=== PATIENT | male | born 1940 | race Caucasian/White ===

== ENCOUNTER 2020-06-02 18:04 | Inpatient (IN) | payer MEDICARE, BC ==
[2020-06-02] MEDS ORDERED: ACETAMINOPHEN325 MG PO (19:07)
[2020-06-02] MEDS ORDERED: MONODOX100 MG PO (19:08)
[2020-06-02] MEDS ORDERED: FOLIC ACID1 MG PO (19:08)
[2020-06-02] MEDS ORDERED: LASIX20 MG PO (19:09)
[2020-06-02] MEDS ORDERED: HEPARIN SOD5000 U/ML IV (19:12)
[2020-06-02] MEDS ORDERED: HUMALOG 30100 UNITS/ SC (19:16)
[2020-06-02] MEDS ORDERED: MAG-OX 400 MG400 MG PO (19:17)
[2020-06-02] MEDS ORDERED: PROTONIX40 MG PO (19:19)
[2020-06-02] MEDS ORDERED: ZOFRAN4 MG PO (19:19)
[2020-06-02 20:53] VITALS: BP 125/81
[2020-06-02 20:57] LABS: BASOPHILS 0.3 % (0-2); EOSINOPHILS 1.5 % (0-7); HEMATOCRIT 44.8 % (42.0-54.0); HEMOGLOBIN 15.4 g/dL (13.5-17.5); IMMATURE GRANULOCYTES 0.4 % (0-5); LYMPHOCYTES 17.7 % (15-50); MCHC 34.4 g/dL (31.0-37.0); MCV 93.1 fL (80.0-100.0); MEAN PLATELET VOLUME 10.8 fL (7.4-10.4); MONOCYTES 9.8 % (2-11); NEUTROPHILS 70.3 % (40-80); PLATELET COUNT 151 10x3/uL (130-400); RBC 4.81 10x6/uL (4.20-6.10); RDW 12.8 % (11.5-14.5); WBC 7.6 10x3/uL (4.8-10.8)
[2020-06-02 21:00] LABS: BILIRUBIN NEGATIVE (NEGATIVE); GLUCOSE 1000 mg/dL (NEGATIVE); KETONE NEGATIVE (NEGATIVE); NITRITE NEGATIVE (NEGATIVE); SPECIFIC GRAVITY 1.015 (1.005-1.020); UROBILINOGEN NORMAL (NORMAL)
[2020-06-02 21:57] LABS: ALBUMIN 3.3 g/dL (3.4-5.0); ANION GAP 12.6 mmol/L (8-16); BILIRUBIN - TOTAL 0.54 mg/dL (0.2-1.3); CALCIUM 8.9 mg/dL (8.5-10.1); CARBON DIOXIDE 25.7 mmol/L (21.0-32.0); CHOL - HDL RATIO 3.8 ratio (2.3-4.9); CREATININE - SERUM 1.9 mg/dL (0.6-1.3); LDL-HDL RATIO 2.5 ratio (1.5-3.5); POTASSIUM - SERUM 4.3 mmol/L (3.5-5.1); PROTEIN - SERUM 7.2 g/dL (6.4-8.2); THYROID STIMULATING HORMONE 1.7 uIU/mL (0.36-3.74)
--- NOTE | 2020-06-02 22:34 | NUR ---
PATIENT GIVEN ATIVAN 0.5 MG IM AND HALDOL 2 MG IM FOR ANXIETY AND COMBATIVE WITH STAff.
--- NOTE | 2020-06-02 22:45 | NUR ---
RECEIVED IN DAYROOM. RESTLESS. VERY CONFUSED. IN HALLWAY AT THIS TIME. HIGH ANXIETY. DELUSIONAL. AGGRESSIVE WITH STAFF. PRN ATIVAN 0.5 MG IM GIVEN FOR ANXIETY AND PRN HALDOL 2 MG IM GIVEN FOR PSYCHOTIC UNSAFE BEHAVIOR. TWO ON ONE CARE PROVIDED AT THIS TIME FOR SAFETY. CONITNUE PLAN OF CARE.
[2020-06-03 00:41] VITALS: BP 125/61
--- NOTE | 2020-06-03 10:56 | NUR ---
The patient was fighting with staff while they toileted him and he fell on his knee then he turned his body and hurt his chest. He was in tears when he came back into the day room. Dr. Mendez assessed and orderd some tests, see orders. Called an let his spouse know, let her know that we will call when we get the results.
--- NOTE | 2020-06-03 13:55 | NUR ---
The patient's xrays are wnl. The patient continues to be confused and he is sliding out of his chair. He is telling staff he needs to get up and walk out. The patient's spouse called and she told Karla Borrero RN that she did not want her to be here, he is supposed to be there two days not to be studied. She then says she would like to come and get him and take him home. Karla Borrero RN explained to her the visitation days and hours again and she also explained that the Tunnel Heading Inspector Tejinder Medrano will be able to further assist her with information about his discharge. Provide prescribed meds. The patient refused his am meds. Continue POC.
--- NOTE | 2020-06-03 15:10 | NUR ---
The patient's daughter called and said that her mother is coming to pick the patient up and she asks that we have her dad ready for her. She asked if she will need any paperwork to do so. Let her know that we will contact the physician. Called Stephanie Jones APN and she states "He can d/c AMA." Will ready the patient to let him go.
--- NOTE | 2020-06-03 17:20 | NUR ---
The patient's spouse is here to pick the patient up and take him AMA. Joy Sams RN explained to her what AMA meant and this nurse also sat with her and explained to her. The spouse is upset because she says her children want him out of here because staff let the daughter know that the patient had ativan and haldol and she is concerned about the medications. At this time she is leaving her on half-way to allow the patient to get an evaluation and then she will determine her next move.
[2020-06-03 20:03] VITALS: BP 144/89
--- NOTE | 2020-06-03 22:30 | NUR ---
B.) PT IS ALERT AND ORIENTED TO SELF ONLY. HE HAS IS AGGITATED WITH CARE. HE IS RESTLESS AND IS OBESERVED ATTEMPTING TO GET OUT OF CHAIR. NEURO CHECKS FROM THE FALL BEING CONTINUE. NO CHANGE IN LOC SINCE FALL. I.) PROVIDED PM MEDICATIONS PRESCRIBED. REDIRECT OFTEN. R.) COMPLIANT WITH ALL MEDICATIONS. DIFFICULT TO REDIRECT. P.) WILL CONTINUE TO MONITOR.
--- NOTE | 2020-06-03 23:37 | NUR ---
PT IS RESTLESS AND RELATES THAT HE IS ANXIOUS. UNABLE TO REDIRECT. ADMINISITERED PRN ATIVAN IM PER ORDERS. WILL CONTINUE TO MONITOR
--- NOTE | 2020-06-04 00:10 | NUR ---
PT IS STILL RESTLESS HE IS RESTING CALMLY IN BED. DIFFICULT TO REDIRECT. WILL CONTINUE TO MONITOR.
--- NOTE | 2020-06-04 03:00 | NUR ---
PATIENT GIVEN HALDOL 2 MG IM FOR ANXIETY AND COBATIVENESS WITH STAFF AT 03:00.
[2020-06-04 07:15] LABS: RAPID PLASMA REAGIN Non Reactive (Non Reactive)
[2020-06-04 09:36] VITALS: BP 127/49
[2020-06-04 13:44] VITALS: Wt 90.3 kg
--- NOTE | 2020-06-04 14:00 | NUR ---
B) PATIENT IS ALERT AND ORIENTED TO SELF ONLY. RESTING QUIETLY WITH EYES CLOSED IN DAYROOM SITTING IN RECLINER. NO BEHAVIORS NOTED AT THIS TIME. I) PRESCRIBED MEDICATIONS ADMINISTERED. REDIRECT AND REORIENT NEEDED. R) COMPLIANT WITH ALL MEDICATIONS. EASY TO REDIRECT. P) CONTINUE PLAN OF CARE.
--- NOTE | 2020-06-04 15:30 | NUR ---
STEVIE SPOKE WITH PT'S PATRICK FOR ONE AND HALF HOURS DUE TO HER HAVING CONCERNS ABOUT PT BEING ON THE UNIT. PT'S STATED SHE UNDERSTOOD WHILE PT WAS ON THE UNIT BUT IS GETTING PRESSURED BY HER KIDS TO COME GET HIM OUT. SHE STATED SHE COULDN'T TAKE CARE OF HIM LIKE HE IS. SW EXPLAINED EFFECTS OF MEDICATIONS AND ANESTHESIA ON DEMENTIA PATIENTS. FAUZIA FINN EXPLAINED DOSES OF PRN MEDS AND PT'S AGGRESSIVE BEHAVIORS. SW DISCUSSED DIFFERENT LEVELS OF CARE AND CARE GIVING IN THE HOME ENVIRONMENT. SW EXPLAINED IF PT IS ON THE RIGHT MEDICATION THE PRN MEDICATIONS WILL BE NOT GIVEN BECAUSE PT WOULD BE MORE STABLE. SW EXPLAINED GROUPS AND ACTIVITIES BEING DONE ON PT AND STAFF ENCOURAGING MOVEMENT AND WALKING. SW ALSO EXPLAINED PT EVALUATION HASN'T BEEN DONE DUE TO PT'S AGGRESSION WITH CARE AND REDIRECTION AT TIMES. PT NEEDS TO BE MORE STABLE TO GET MORE ASSESSSMENTS. PT'S STATED SHE WOULD ASK HER DTR TO COME IN THE NEXT WEEK. SHE FEELS THE PT MIGHT BE MORE STABLE AND THEN COULD COME HOME EASIER THAN RIGHT NOW. STEVIE GAVE HER SW'S CARD WITH PW AND UNIT NUMBER ON IT. SHE ASKED SW IF HER CHILDREN COULD CALL AND SW STATED YES. SW THEN STATED IF VOICEMAIL IS LEFT AND IF THEY DON'T RECIEVE CALL BACK WITH IN A FEW HOURS CALL THE UNIT AT [phone]. PT'S VERBALIZED UNDERSTANDING OF DISCUSSION.
[2020-06-04 20:19] VITALS: BP 157/88
--- NOTE | 2020-06-04 23:13 | NUR ---
PT IS ATTENDING TO VISUAL HALLUCINATIONS. HE IS AGGITATED WITH CARE. PT IS HAVING CRYING SPELLS FROM VISUAL HALLUCINATIONS. DIFFICULT TO REDIRECT. ADMINISITERED IM HALDOL 2 MG. WILL CONTINUE TO MONITOR.
--- NOTE | 2020-06-04 23:40 | NUR ---
PT IS RESTING CALMLY IN A GERICHAIR IN THE HALLWAY FOR OBSERVATION. NO SIGNS OF DISTRESS NOTED. WILL CONTINUE TO MONITOR.
--- NOTE | 2020-06-04 23:50 | NUR ---
B.) PT IS ALERT AND ORIENTED TO SELF ONLY. HE HAS POOR INSIGHT INTO HIS SITUATION. HE IS RECEIVED IN THE DAYROOM IN A GERICHARIR. HE IS COOPERATIVE WITH STAFF. HIS SPEECH REMAINS GARBLED. I.) PROVIDED PM MEDICATIONS PRESCRIBED. REDIRECT OFTEN. R.) COMPLIANT WITH ALL MEDICATIONS. DIFFICULT TO REDIRECT. P.) WILL CONTINUE TO MONITOR.
--- NOTE | 2020-06-05 04:30 | NUR ---
PATIENT WAS GIVEN HALDOL AND ATIVAN AROUND 2 AM FOR RESTLESSNESS, HITTING AND SCRATCHING STAFF, HE WAS SAYING THINGS THAT DID NOT MAKE ANY SENSE, HE URINATED IN THE FLOOR. INTERVENTION WAS EFFECTIVE
[2020-06-05 07:31] LABS: ANION GAP 12.2 mmol/L (8-16); CALCIUM 9.3 mg/dL (8.5-10.1); CARBON DIOXIDE 27.6 mmol/L (21.0-32.0); CREATININE - SERUM 1.4 mg/dL (0.6-1.3); POTASSIUM - SERUM 3.8 mmol/L (3.5-5.1)
--- NOTE | 2020-06-05 11:38 | NUR ---
The patient is sleepy this am, he has not shown aggression, but he continues to sleep d/t the prn he had last night. He is too sleepy this am to take his medications. He has poor insight into his situation. He knows his name, but he does not know his name or the place. Redirect as needed to appropriate milieu. Continue POC.
[2020-06-05 14:10] VITALS: BP 140/79
--- NOTE | 2020-06-05 15:43 | NUR ---
PT DAUGHTER AND SPOUSE HERE AT THIS TIME. PASSCODE NOT GIVEN AT THIS TIME. STAFF MEMBER NOTIFIED DEVELOPMENT ENG OF FAMILY STATING THEY HAVE AN APPT WITH [facility] AND SHE HAD SPOKEN TO KARIE ABOUT HER HAVING AN APPT. DEVELOPMENT ENG MET WITH FAMILY AT THIS TIME. NURSE WROTE PASSCODE ON PAPER FOR THE DUE TO HER NOT HAVING THE CODEWORD. IS POA. Darshana GALAN DEVELOPMENT ENG EDUCATED PTS FAMILY OF EFFECTS OF ANESTHESIA ON THE ELDERLY POPULATION DUE TO SLOWER METABOLISM. SHE STATED OKAY. SW EXPLAINED THAT THE PRN NEEDED MEDS WERE NOT ROUTINE AND THAT WAS ONLY GIVEN IF BEHAVIORS WERE OCCURING. THAT WAS NOT PART OF HIS ROUTINE MEDS AND THAT NO NEW MEDS WERE ADDED DUE TO AWAITING ANESTHESIA TO WEAR OFF AND PT TO BE MORE ALERT. DAUGHTER STATED THAT THEY WOULD BE REQUESTING RECORDS FROM BOTH HOSPITALS DUE TO HER MOTHER BEING MISLEAD ABOUT THE UNIT HERE. SHE STATED SHE WAS TOLD HE WOULD BE GOING TO REHAB AND AFTER SEEING HIM YESTERDAY SHE COULDNT HANDLE IT. SHE STATED HE HAD BEEN SLEEPING ALOT AT HOME PRIOR TO THE SURGERY AND THAT HE WAS SLEEPING YESTERDAY WHILE SHE WAS HERE AND SHE DID NOT LIKE IT. DAUGHTER ASKED WHY HE WAS NOT RECIEVING PHYSICAL THERAPHY HERE AND SW EXPLAINED THAT HE WAS NOT AWAKE ENOUGH TO HAVE THERAPY JUST YET. THE STAFF DOES TRANSFERS, ROM AND OTHER ACTIVITIES DO KEEP UP STRENGTH IN THE LEGS. SHE ASKED ABOUT HIS FALL AND IF HE COULDNT WALK CAUSE HIS KNEE WAS HURT SHE STATED ""I KNOW THERE WASNT A TECHINAL INJURY"" BUT IS HIS KNEE SWOLLEN IS THAT THE PROBLEM?" NURSE EXPLAINED X-RAYS WERE OBTAINED AND NO INJURY WAS NOTED AND ROM EXERCISES WERE DOING WELL. AGAIN, DAUGHTER REQUESTED MEDICAL RECORDS RIGHT NOW. SW EXPLAINED THAT DUE TO COVID THAT CALLING WOULD BE THE WAY TO REQUEST RECORDS CAUSE IT WAS CLOSED TO THE PUBLIC DUE TO COVID. AT THIS EXPLANATION THE DAUGHTER BECAME UPSET AND AGIATED. DAUGHTER STATED "HOW DO I GET ANY RECORDS TODAY." SW AGAIN EXPLAINED THAT SHE WOULD HAVE TO CALL MEDICAL RECORDS CAUSE TODAY THEY WERE CLOSED AND CLOSED ON WEEKENDS. DAUGHTER WAS AGIATED AND STATED "WELL WE WILL LET [facility] HANDLE BOTH HOSPITALS AND I THINK THAT ENOUGH OF THE MEDICAL TALK." DAUGHTER REQUESTED TO SEE HER FATHER. STAFF EXPLAINED THAT IT WAS NOT VISITATION AND WE WOULD HAVE TO GET ADMINISTATION TO APPROVE THE VISITATION. VISITATION REQUEST WAS GRANTED. STAFF BROUGHT PT TO THE FRONT. DAUGHTER INSPECTED HIS KNEE POST FALL. STAFF NOTIFIED DAUGHTER THAT CELLPHONES WERE NOT ALLOWED ON THE UNIT. SHE COMPLIED. DAUGHTER ASKED WHY THERE WAS SUCH STRICT RULES FOR THE UNIT. SW EXPLAINED THAT WE HAD A SCHEDULE FOR ACTIVITIES, DOCTORS COMING IN FOR EVALS DURING THE DAY. NURSE REVIEWED X-RAYS OF THE KNEE AND EXPLAINED THAT NO BONES WERE BROKEN AND NO FRACTURES WERE NOTED. AND FALL HAPPENED WHEN PT BECAME COMBATIVE [facility] STAFF. DAUGHTER BECAME AGITATED WITH DEVELOPMENT ENG WHEN PROPER MASK ETIQUETTE WAS REQUESTED DUE TO COVID. DAUGHTER STATED "LOOK I KNOW YOUR EMOTIONAL CAUSE WE ARE TAKING HIM OUT TOMMORROW BUT SHE DID NOT NEED TO TAKE A TONE WITH HER." SW EXPLAINED THAT SHE WAS LOSING HER VOICE AND THAT THE D/C WAS EXPECTED AND WAS OFFERING TO HELP WITH THE D/C ON 06/05/20 SETTING IT UP FOR 11 A.M. AFTER MED PASS TIME. DAUGHTER VERBALIZIED UNDERSTANDING. STAFF WILL ASSIST WITH DISCHARGE. VERBALIZED UNDERSTANDING.
--- NOTE | 2020-06-05 16:13 | NUR ---
SW MET WITH PT'S AND DTR. THE TWO SHOWED UP TO THE UNIT BACK DOOR STATING THEY HAD A MEETING WITH [facility]HEL OR KARIE. THEY WERE DIRECTED TO GO TO THE FRONT OF THE HOSPITAL FOR COVID SCREEN DUE TO IT NOT BEING VISITATION HOURS. WHEN ON THE UNIT PT'S DTR ASKED ABOUT WHY VISITATION HOURS AND SW EXPLAINED PT'S GET ONE VISITOR PER DAY AND OUR UNIT HAD STRICT VISITATION GUIDELINES DUE TO PT'S BEING IN GROUPS AND MEETING WITH DRS DURING THE DAY. PT'S DTR TOLD SW THAT PT'S WAS MISLEAD TO ADMIT PT HERE DUE TO HIS ADVANCE DIRECTIVE STATING HE DID NOT WANT TO BE IN A FACILITY. SW STATED TELEPHONE CONSENT WAS GIVEN BY PT'S AFTER UNIT RN WENT OVER UNIT ORIENTATION AND WHAT TYPE OF TREATMENT WOULD OCCUR. PT'S DTR STATED PT WILL CONTINUE ACTING THIS WAY DUE TO HIM NOT WANTING TO BE IN A FACILITY. SW STATED PT CAN BE DISCHARGED BUT WILL BE DISCHARGED AMA DUE TO TREATMENT NOT BEING COMPLETED. THEY VOICED UNDERSTANDING. SHE STATED HER BROTHER WILL BE HANDLING BOTH HOSPITALS. SW SET UP DISCHARGE FOR TOMORROW AT 11. SW GAVE INSTRUCTIONS. PT'S STATED SHE DOESN'T WANT HARD FEELINGS AND IT IS NOT OUR FAULT. SW STATED SHE WISHED ALL OF THEM THE BEST AND HOPES BEING IN THE HOME WORKS FOR THE PT. PT'S DTR LOOKED AT SW AND STATED SHE KNOWS SW IS GETTING EMOTIONAL AND AGGREVATED AT THE SITUATION ABOUT PT LEAVING. SW STATED HER VOICE IS SCRATCHY DUE TO ALLERGIES AND HER EMOTIONS ARE NOT OUT OF ORDER. SW REPORTED SHE KNEW ABOUT POSSIBLE DISCHARGE THIS MORNING AND WAS PREPARED TO HELP. PT'S DTR WANTED MEDICAL RECORDS NOW AND SW STATED MEDICAL RECORDS IS CLOSED TO PUBLIC DUE TO COVID AND SHE WOULD NEED TO CALL TO RECIEVE MEDICAL RECORDS. PT'S DTR WAS AGGREVATED WITH STATEMENT AND STATED I CAN'T GO IN PERSON TODAY. SW EXPLAINED A PHONE CALL TO THE DEPARTMENT WOULD HAVE TO BE MADE TO SET UP MEDICAL RECORD FRUIT GRADER OPERATOR. SW STATED MEDICAL SUMMARY WILL BE SENT HOME WITH PT FOR FOLLOW UP CARE. PT'S AND DTR VOICED UNDERSTANDING OF DISCHARGE BEING AMA AND FRUIT GRADER OPERATOR BEING SCHEDULED FOR 11AM TOMORROW.
--- NOTE | 2020-06-05 17:09 | NUR ---
JIMMY FROM [facility] CALLED AND WAS REQUESTING A EMS TRANSFER PER THE FAMILY FOR THE DISCHARGE ON 06/06/20. NURSE EXPLAINED THAT WAS A AMA D/C AND SHE WOULD HAVE TO GET CONSENT FROM THE MANAGER IMPLEMENTATION. NURSE OBTAINTED INFORMATION FROM MANAGER IMPLEMENTATION. NURSE CALLED [facility] AND RELAYED THAT WE COULD NOT DO A PCS FORM DUE TO IT BEING A AMA AND THE FAMILY WOULD HAVE TO PRIVATE PAY. SHE VERBAILIZED UNDERSTANDING.
--- NOTE | 2020-06-05 17:21 | NUR ---
The patient refuses his meds, refuses to eat, refuses his insulin. He said "I will take my medications with the orders to me."
[2020-06-05 20:08] VITALS: BP 153/85
--- NOTE | 2020-06-05 22:58 | NUR ---
RECEIVED PATIENT IN DAYROOM, HE IS EXTREMLY CONFUSED, EASILY AGITATED. HE IS A TOTAL CARE PATIENT. WILL FOLLOW POC
--- NOTE | 2020-06-06 03:38 | NUR ---
LATE ENTRY FOR Monday06/04/20: AAKASH HAYES RN TALKED WITH PATIENT'S FOR 20 MINUTES DURING VISITATION TIME. WE DISCUSSED ABOUT HER 'S RECENT SURGERY AND BEHAVIOR AT THIS TIME. SHE WAS INFORMED THAT HE WILL REQUIRE 24 HR. CARE NOW. HE DOES GET AGGRESSIVE DURING ADL'S. HER CHILDREN WANT HER TO TAKE HIM HOME.
--- NOTE | 2020-06-06 09:42 | NUR ---
The patient is awake and alert he is talking nonsensical. Iris sat with him for awhile this am and he talked and talked. He did not sleep last night except an hour. He is attempting to get up. He has poor insight into his situation. He does not realize he is not steady and can't walk on his own. He was assisted to the bathroom with two staff and he voided urine. He is sitting up in the dayroom. Provide prescribed meds. The patient is compliant with meds. Continue POC.
[2020-06-06 09:54] VITALS: BP 146/74
--- NOTE | 2020-06-06 11:17 | NUR ---
SPOKE WITH DAUGHTER SHE CALLED TO CLARIFY THAT THE PT WAS READY TO DISCHARGE AND THEY WERE ON THEIR WAY. DAUGHTER STATED "WHAT ARE HIS ABILITY OF MOVEMENT TODAY YESTERDAY IT WAS OBVIOUSLY LIMITED YESTERDAY AND HOW ARE WE GOING TO BE ABLE TO GET HIM TO THE CAR?" NURSE STATED THAT WE HAD WALKED HIM THIS A.M. AND WE WOULD PUT HIM IN A W/C AND ASSIST HIM OUT TO THE CAR. SHE VERBALIZIED UNDERSTANDING.
--- NOTE | 2020-06-06 12:21 | NUR ---
FAMILY CAME TO PICK PT UP. AND POA SIGNED AMA FORM. DAUGHTER ASKED WHY HE DIDNT HAVE ANY UNDERGARMENTS ON AND WHERE WAS HIS PERSONAL BELONGINGS. NURSE EXPLAINED THAT HE WAS IN A SCRUB TOP AND A GOWN. WE CHECKED HIS INVENTORY SHEET AND WE DID NOT RECEIVE ANY BELONGINGS FROM [facility]. DAUGHTER ASKED IF WE COULD CALL [facility] AND GET HIS BELONGINGS. NURSE EXPLAINED THAT SINCE HE WAS LEAVING SHE WOULD HAVE TO CALL THE FAMILY TO OBTAIN ITEMS. DAUGHTER WAS AGITATED AT NURSE EXPLANING. DAUGHTER ASKED IF HE WAS ON THE ATIVAN AND WHERE THE PAPERWORK WAS FOR THEM. NURSE EXPLAINED THAT HE HAD NO HAD ATIVAN IN 2 DAYS CAUSE THAT WAS A PRN MED AND WITH AMA DISCHARGES NO PAPERWORK WAS GIVEN. THAT WE CONT ON HIS ROUTINE MAINTANCE MEDS. DAUGHTER ASKED IF WE WANTED HER TO MOVE HER CAR TO THE END OF THE RAMP SINCE WE DENIED EMS TRANSFER. NURSE ATTEMPTED TO EXPLAIN WHY EMS TRANSFER WASNT APPROVED FOR THIS UNIT TO SIGN PCS FORM DAUGHTER STATED THIS ISNT A NEEDED CONVERSATION. ITS BEEN TO MANY WORDS ALREADY. PTS ATTEMPTED TO ASKED QUESTIONS DAUGHTER TOLD HER IT WAS TOO MNAY WORDS. 2X STAFF WHEELDED PT OUT IN W/C TO ASSIST PT INTO CAR. 3X ASSISTANCE AND MUCH ENCOURAGEMENT PT GOT INTO CAR. AMA FORM SIGNED. PT TOLERATED GETTING INTO THE CAR SOMEWHAT WELL. PT IS CONFUSED AND HARD TO REDIRECT. FAMILY STATED THAT THEY WERE GETTING HOME HEALTH TO HELP. STAFF TOLD IF SHE NEEDED ANYTHING TO CALL.
--- NOTE | 2020-06-07 11:24 | PSY ---
PATIENT NAME:CARLOS SAGASTUME MEDICAL RECORD: [id number] : 38 LOCATION:[id number] ADMISSION DATE: 06/02/20 ACCOUNT: [id number] PSYCHIATRIC EVALUATION DATE OF EVALUATION: 06/03/20 IDENTIFYING DATA: Mr. Sagastume is an 80-year-old male patient who appears his stated age that was referred from [facility] on a voluntary basis following a procedure. CHIEF COMPLAINT: Confusion and agitation. HISTORY OF PRESENT ILLNESS: It was reported that the patient had increased confusion after surgery, increased agitation and aggression. It was reported that this male who was admitted for bladder mass status post resection of bladder tumor on 06/01/2020. Postop, the patient was doing well until after about an hour when the patient became confused and delirious, agitated, and combative. The patient had to be escorted by security to his room. The patient was yelling, states he wants to leave and drive his truck home. He refused physical exam states that he will be in trouble if you examine me. The patient also has a hearing impairment. As per nursing staff, reported that the patient does have a history of Alzheimer dementia and has intermittent episodes of confusion and agitation at home. The patient was restrained in the facility until transfer to our facility. PAST MEDICAL HISTORY: The patient has a history of a CVA, diabetes, GERD, hypothyroidism. PAST PSYCHIATRIC HISTORY: The patient has a history of dementia. TRAUMA HISTORY: The patient is a poor historian regarding any physical, sexual or emotional trauma. FAMILY HISTORY: The patient unable to articulate any mental health family history. ALLERGIES: THE PATIENT HAS ALLERGIES TO LISINOPRIL, FLOMAX, AND ATORVASTATIN. CURRENT MEDICATIONS: Include Monodox capsules 100 mg 2 times daily, Folvite tablet 1 mg, Lasix 10 mg daily, glucagon 1 mg per mL injection, heparin injection 5000 units, Apresoline 10 mg every 4 hours p.r.n. for blood pressure, Humalog injection every 6 hours for low dose insulin sliding scale, Maalox tablet 400 mg, Zofran 4 mg, Protonix. SOCIAL HISTORY: The patient reports that he has been for a bunch of years. The patient reports that he has a bunch of children. The patient denies any alcohol, tobacco, or recreational drug use. He lives at home with his . MENTAL STATUS EXAM: The patient is alert and oriented to person, disoriented to place, time or event. The patient's speech is low rate, low tone, low volume. His eye contact is good. His posture is within normal limits. There is not any evidence of psychomotor retardation or agitation. Mood is depressed and anxious. Affect is flat, blunt, narrow in range. The patient does not have any suicidal ideation or homicidal ideation. Does not appear to have any auditory or visual hallucinations. The patient's general fund of knowledge is unable to be evaluated. Neither is his digit span nor his proverb interpretation related to memory. His judgment and insight are poor. His impulsivity is high. His memory is poor for both recent and remote events. STRENGTHS: His ability to communicate his needs. WEAKNESS: His weakness is mental capacity. ASSESSMENT: AXIS I: Alzheimer's. AXIS II: None. AXIS III: Cerebrovascular accident, diabetes, gastroesophageal reflux disease, and hypothyroidism. The patient is also hard of hearing, and urinary tract infection. AXIS IV: Moderate stressors. AXIS V: Global assessment of functioning is 30. PLAN: At this time, the patient is to be admitted to the hospital secondary to aggressive, agitated, and confused behaviors associated with a dementing illness and acute illness. He will be comprehensively evaluated from both a medical, psychological, and social standpoint. He will be treated with both mood stabilizing and memory enhancing medications. His long-term prognosis is guarded. Dictated By: Stephanie Jonse APN I have interviewed/examined the above patient and agree with these documented findings. TRANSINT:[id number] Voice Confirmation ID: [id number] DOCUMENT ID: [id number] STEPHANIE JONES APRN at 1124 CC: [id number] DICTATION DATE: 06/03/201902 HAND CUTTER: 06/04/20 0010 DIS IN 06/06/20 [id number] [place] [address]
--- NOTE | 2020-06-08 15:45 | DS ---
PATIENT:CARLOS REESE :38 MEDICAL RECORD: [id number] DISCHARGE SUMMARY ADMISSION DATE: 06/02/20 DISCHARGE DATE: 06/06/20 DATE OF ADMISSION: 06/02/2020 DATE OF DISCHARGE: 06/06/2020 IDENTIFYING DATA: The patient is an 80-year-old male who appears about his stated age that was referred from [facility] and admitted on a voluntary basis following a procedure. CHIEF COMPLAINT: Confusion and agitation. HISTORY OF PRESENT ILLNESS: The patient came to us from [facility] following a cardioversion and increased confusion, agitation, delusions, screaming and uncooperative. The patient was restrained and medicated and was combative. The patient was then referred to us. HOSPITAL COURSE: The patient was admitted to our unit. The patient's spouse came to visit. The patient's spouse stated that she had talked with her children. Her children stated that they did not want him in a facility that they had talked with him previously prior to his illness and he did not want to be in any facilities and that they wanted him to be home. Therefore, they would be coming to get him; however, that would not happen until 06/06/2020 when they would be able to come. Case management met with spouse. Spouse did state that she was not able to take care of him. Family member stated that they would obtain 24/7 care for him. Family members did inquire about obtaining an ambulance to take him home. Family was informed that was possible if it was a private pay. The patient was medicated with Haldol and Ativan for aggressive behaviors. Did discontinue the Haldol as maybe that was sedating for him. There was no other medication changes. The patient did converse. Physical therapy was ordered for the patient and there was an evaluation and the patient was discharged on 06/06/2020. DISCHARGE DIAGNOSES: AXIS I: Major neurocognitive disorder of Alzheimer's type. AXIS II: None. AXIS III: With a cerebrovascular accident, diabetes, gastroesophageal reflux disease, hypothyroidism. AXIS IV: Moderate stresses. AXIS V: Global assessment of functioning is at 30. PLAN: At the time of discharge, the patient was not in good behavioral control. The patient was alert and oriented to person. The patient would require 24/7 care and supervision and total assistance with activities of daily living. Followup was encouraged with primary care physician as soon as possible. The patient was discharged AMA. Dictated By: Dung Jones APN I have interviewed/examined the above patient and agree with these documented findings. TRANSINT:[id number] Voice Confirmation ID: [id number] DOCUMENT ID: [id number] DISCHARGE SUMMARY REPORT [id number] CARLOS RESEE Dictated By: DUNG JONES I have interviewed/examined the above patient and agree with these documented findings. CARLO SAEED MD at 1545 CC: [id number] DICTATION DATE: 06/07/20 1136 FLIGHT INFORMATION EXPEDITER: 06/08/20 0002 DIS IN 06/06/20 [facility] [address] [place] [address]
== END 2020-06-06 12:05 | disposition left against medical advice (07) | DRG 57 ==
LOC: D.PSYCH 18:04
PROVIDERS: Family Medicine; ADMIT Psychiatry & Neurology Psychiatry; ATTEND Psychiatry & Neurology Psychiatry
DX: G30.1 Alzheimer's disease with late onset (principal); F02.81 Dementia in other diseases classified elsewhere, unspecified severity, with behavioral disturbance; N39.0 Urinary tract infection, site not specified; E87.1 Hypo-osmolality and hyponatremia; E11.9 Type 2 diabetes mellitus without complications; E03.9 Hypothyroidism, unspecified; E55.9 Vitamin D deficiency, unspecified; M19.90 Unspecified osteoarthritis, unspecified site; R26.9 Unspecified abnormalities of gait and mobility; K21.9 Gastro-esophageal reflux disease without esophagitis